=== PATIENT | female | born 1975 | race Caucasian/White ===

== ENCOUNTER 2016-10-31 16:34 | Emergency (ER) | payer MEDICAID, OTHER ==
[2016-10-31 17:01] VITALS: O2SAT 100
--- NOTE | 2016-10-31 19:19 | C.PDOC ---
History Of Present Illness Patient presents to the ER with a compliant of intermittent chest pain and back pain that worsens with inspiration. Patient reports the pain has been worsening over the last few days and notes it hurts to move. Denies fever or chills. Time Seen by Provider: 10/31/16 19:18 Chief Complaint (Nursing): Chest Pain History Per: Patient History/Exam Limitations: no limitations Onset/Duration Of Symptoms: Days, Intermittent Episodes Current Symptoms Are (Timing): Still Present Severity: Moderate Pain Scale Rating Of: 4 Associated Symptoms: denies: Other (Fever, Chills) Exacerbating Factors: Movement, Deep Breathing Alleviating Factors: None Recent travel outside of the [place]: No Past Medical History Reviewed: Historical Data, Nursing Documentation, Vital Signs Vital Signs: Last Vital Signs Temp 97.9 F 10/31/16 23:00 Pulse 72 10/31/16 23:00 Resp 20 10/31/16 23:00 BP 111/57 L 10/31/16 23:00 Pulse Ox 100 10/31/16 23:00 - Medical History PMH: Diabetes, HTN, Hypercholesterolemia Surgical History: - [facility] Procedures APPLICATION OF SPLINT (09/20/14) Family History: States: No Known Family Hx - Social History Hx Tobacco Use: No Hx Alcohol Use: No Hx Substance Use: No - Immunization History Hx Tetanus Toxoid Vaccination: Yes Hx Influenza Vaccination: Yes Hx Pneumococcal Vaccination: No Review Of Systems Constitutional: Negative for: Fever, Chills Cardiovascular: Positive for: Chest Pain Musculoskeletal: Positive for: Back Pain Physical Exam - Physical Exam Appears: Non-toxic Skin: Warm, Dry Oral Mucosa: Moist Chest: Symmetrical, Tenderness (Reproducible Anterior Wall. Lower Thoracic Area) Cardiovascular: Rhythm Regular, No Murmur Respiratory: No Rales, No Rhonchi, No Wheezing Gastrointestinal/Abdominal: Soft, No Tenderness Neurological/Psych: Oriented x3 ED Course And Treatment - Laboratory Results Result Diagrams: 10/31/16 19:50 10/31/16 19:50 ECG: Interpreted By Me, Viewed By Me ECG Rhythm: Sinus Rhythm (68), Nonspecific Changes O2 Sat by Pulse Oximetry: 100 Pulse Ox Interpretation: Normal - Radiology CXR Interpretation: Yes: Other (poss lll infiltrate). No: Fracture, Cardiomegaly, Pnemothorax Progress Note: EKG, blood work, CXR and urinalysis ordered. Nebulizer treatment , ecotrin, pepcid and morphine administered. Reevaluation Time: 23:05 Reassessment Condition: Improved Medical Decision Making Medical Decision Making: Upon provider reevaluation patient is feeling better, is medically stable, and requires no further treatment in the ED at this time. Patient will be discharged home with Rx for naprosyn . Counseling was provided and all questions were answered regarding diagnosis and need for follow up with dr riojas. There is agreement to discharge plan. Return if symptoms persist or worsen. Disposition Counseled Patient/Family Regarding: Studies Performed, Diagnosis, Need For Followup - Disposition Referrals: Lizz Riojas APN [Advanced Practice Nurse] - Disposition: HOME/ ROUTINE Disposition Time: 19:19 Condition: FAIR Additional Instructions: Please return if symptoms recur Prescriptions: Naproxen [Naprosyn] 1 tab PO BID PRN #25 tab PRN Reason: Pain Instructions: Costochondritis (ED) Print Language: PUERTO RICAN - Clinical Impression Clinical Impression: Costochondral chest pain - Scribe Statement The provider has reviewed the documentation as recorded by the Scribelvis Wang All medical record entries made by the Vinayibelvis were at my direction and personally dictated by me. I have reviewed the chart and agree that the record accurately reflects my personal performance of the history, physical exam, medical decision making, and the department course for this patient. I have also personally directed, reviewed, and agree with the discharge instructions and disposition.
[2016-10-31] MEDS ORDERED: Aspirin 325 mg EC Tablets PO STA (19:32)
[2016-10-31] MEDS: Albuterol-Ipratrop 3 mg / 0.5 (3 ml) UD IH SCH ×3 (19:44→20:25)
[2016-10-31 19:52] VITALS: RESP 20
[2016-10-31 19:55] LABS: BASO # 0.1 K/uL (0.0-0.2); BASO % 0.8 % (0.0-2.0); EOS # 0.2 K/uL (0.0-0.7); EOS % 2.2 % (0.0-4.0); HEMATOCRIT 42.4 % (34.0-47.0); LYMPH # 4.1 K/uL (1.0-4.3); LYMPH % 41.5 % (20.0-40.0); MEAN CELL VOLUME 92.9 fL (81.0-99.0); MEAN CORPUSCULAR HEMOGLOBIN 29.6 pg (27.0-31.0); MEAN CORPUSCULAR HGB CONC 31.9 g/dL (33.0-37.0); MEAN PLATELET VOLUME 8.8 fL (7.2-11.7); MONO # 0.7 K/uL (0.0-0.8); NRBC % 0.1 % (0.0-2.0); RED CELL DISTRIBUTION WIDTH 14.2 % (11.5-14.5)
[2016-10-31] MEDS ORDERED: Albuterol-Ipratrop 3 mg / 0.5 (3 ml) UD ONE (19:56)
[2016-10-31 20:04] LABS: CHLORIDE 109 mmol/L (98-107); INR 0.9
[2016-10-31 20:05] LABS: SODIUM 139 mmol/L (132-148)
[2016-10-31 20:07] LABS: ALB/GLOB RATIO 1.3 (1.0-2.1); AST/SGOT 31 U/L (14-36); BILIRUBIN,TOTAL 0.9 mg/dL (0.2-1.3); BLOOD UREA NITROGEN 16 mg/dL (7-17); CARBON DIOXIDE 16 mmol/L (22-30); GFR AFRICAN-AMERICAN > 60; TOTAL PROTEIN 7.9 g/dL (6.3-8.3)
[2016-10-31 20:08] LABS: ALKALINE PHOSPHATASE 91 U/L (38-126); ALT/SGPT 13 U/L (9-52); GLUCOSE,RANDOM 86 mg/dL (65-105)
[2016-10-31 20:27] LABS: URINE BACTERIA RARE (<OCC); URINE BILIRUBIN NEGATIVE (NEGATIVE); URINE BLOOD 3+ (NEGATIVE); URINE COLOR Colorless (YELLOW); URINE GLUCOSE (UA) 3+ mg/dL (Normal); URINE KETONE NEGATIVE (NEGATIVE); URINE LEUKOCYTE ESTERASE NEG Leu/uL (Negative); URINE PROTEIN NEGATIVE (NEGATIVE); URINE UROBILINOGEN NORMAL mg/dL (0.2-1.0); WBC URINE < 1 /hpf (0-5)
[2016-10-31 23:00] VITALS: BP 111/57; PULSE 72; TEMP 97.9
--- NOTE | 2016-11-01 08:43 | RAD ---
PROCEDURE: CHEST RADIOGRAPH, 1 VIEW HISTORY: chest pain COMPARISON: None available. FINDINGS: LUNGS: Clear. PLEURA: No pneumothorax or pleural fluid seen. CARDIOVASCULAR: Normal. OSSEOUS STRUCTURES: Degenerative changes in the spine and right shoulder. VISUALIZED UPPER ABDOMEN: Normal. OTHER FINDINGS: None. IMPRESSION: No active disease.
--- NOTE | 2016-11-03 00:29 | CARD ---
APPROVED REPORT EKG Measurement Heart [id number] <Conclusion> Normal sinus rhythm Normal ECG
== END 2016-10-31 23:40 | disposition home or self-care (01) ==
LOC: C.ER 16:34
DX: R07.1 Chest pain on breathing (principal)
CPT/HCPCS: 71010; 80053; 81001; 84484; 84703; 85025; 85610; 85730; 96374; 96375; 99285; J2270

== ENCOUNTER 2017-06-28 15:46 | Observation (INO) | payer MEDICAID, OTHER ==
[2017-06-28] MEDS ORDERED: Aspirin 325 mg EC Tablets PO STA (16:17)
--- NOTE | 2017-06-28 16:19 | C.PDOC ---
History Of Present Illness 42-year-old female, PMHx includes Diabetes, Hypertension, and Hypercholesterolemia, presents to the emergency department with complaints of one day duration of chest pain that started last night. Patient notes pain was initially intermittent, but when she woke up this morning, it became persistent and associated with shortness of breath, nausea and dizziness. Patient also notes tingling in her hands. Pain is non-radiating and worsens with deep inspiration. Denies any fevers, vomiting, abdominal pain, dizziness, recent travel, back pain, leg swelling, or any other associated symptoms. No other complaints at this time. Time Seen by Provider: 06/28/17 16:08 Chief Complaint (Nursing): Chest Pain History Per: Patient History/Exam Limitations: no limitations Onset/Duration Of Symptoms: Hrs Current Symptoms Are (Timing): Still Present Severity: Moderate Past Medical History Reviewed: Historical Data, Nursing Documentation, Vital Signs Vital Signs: Last Vital Signs Temp 98.0 F 06/28/17 17:32 Pulse 68 06/28/17 17:32 Resp 16 06/28/17 17:32 BP 115/65 06/28/17 17:32 Pulse Ox 100 06/28/17 18:01 - Medical History PMH: Diabetes, HTN, Hypercholesterolemia Surgical History: - [facility] Procedures APPLICATION OF SPLINT (09/20/14) Family History: States: No Known Family Hx - Social History Hx Tobacco Use: No Hx Alcohol Use: No Hx Substance Use: No - Immunization History Hx Tetanus Toxoid Vaccination: Yes Hx Influenza Vaccination: Yes Hx Pneumococcal Vaccination: No Review Of Systems Except As Marked, All Systems Reviewed And Found Negative. Constitutional: Negative for: Fever, Chills Cardiovascular: Positive for: Chest Pain. Negative for: Palpitations, Edema Respiratory: Positive for: Shortness of Breath Gastrointestinal: Positive for: Nausea. Negative for: Vomiting, Abdominal Pain Musculoskeletal: Negative for: Back Pain Skin: Negative for: Rash Neurological: Positive for: Dizziness. Negative for: Weakness, Numbness, Headache Physical Exam - Physical Exam Appears: Non-toxic, No Acute Distress, Other (appears anxious) Skin: Normal Color, Warm, Dry, No Diaphoretic, No Rash Head: Normacephalic Eye(s): bilateral: PERRL Nose: Normal Oral Mucosa: Moist Lips: Normal Appearing Neck: Normal ROM Chest: Symmetrical, Tenderness (chest wall w/ palpation) Cardiovascular: Rhythm Regular, No Edema, No Murmur Respiratory: Normal Breath Sounds, No Accessory Muscle Use Gastrointestinal/Abdominal: Soft, No Tenderness Extremity: Normal ROM Neurological/Psych: Oriented x3, Normal Speech ED Course And Treatment - Laboratory Results Result Diagrams: 06/28/17 16:25 06/28/17 16:25 ECG: Interpreted By Me, Viewed By Me ECG Rhythm: Sinus Rhythm ECG Interpretation: No Acute Changes Rate From EC O2 Sat by Pulse Oximetry: 100 (RA) Pulse Ox Interpretation: Normal Medical Decision Making Medical Decision Making: Plan: * EKG * Labs * Chest X-Ray * Aspirin * Reassess and Disposition Reassess Patient will be admitted to Dr Quach service. Patient is agreeable with plan. All questions were answered. Disposition Discussed With .: Marquita Murillo Doctor Will See Patient In The: Hospital Counseled Patient/Family Regarding: Studies Performed, Diagnosis - Disposition Disposition: HOSPITALIZED Disposition Time: 18:01 Condition: FAIR Forms: [facility] (Gh[place]ian) - POA Core Measure Indicators: Chest Pain - Clinical Impression Clinical Impression: Chest pain - Scribe Statement The provider has reviewed the documentation as recorded by the Scribe (Boaz Leach) All medical record entries made by the Scribe were at my direction and personally dictated by me. I have reviewed the chart and agree that the record accurately reflects my personal performance of the history, physical exam, medical decision making, and the department course for this patient. I have also personally directed, reviewed, and agree with the discharge instructions and disposition.
[2017-06-28 16:38] LABS: BASO # 0.1 K/uL (0.0-0.2); EOS # 0.2 K/uL (0.0-0.7); EOS % 2.1 % (0.0-4.0); HEMOGLOBIN 14.6 g/dL (11.0-16.0); LYMPH # 4.3 K/uL (1.0-4.3); LYMPH % 38.5 % (20.0-40.0); MEAN CORPUSCULAR HEMOGLOBIN 30.9 pg (27.0-31.0); MEAN CORPUSCULAR HGB CONC 34.1 g/dL (33.0-37.0); MEAN PLATELET VOLUME 8.7 fL (7.2-11.7); MONO # 0.8 K/uL (0.0-0.8); MONO % 7.1 % (0.0-10.0); NEUT # 5.7 K/uL (1.8-7.0); NEUT % 51.3 % (50.0-75.0); RBC 4.72 Mil/uL (3.80-5.20); RED CELL DISTRIBUTION WIDTH 12.7 % (11.5-14.5); WHITE BLOOD COUNT 11.1 K/uL (4.8-10.8)
[2017-06-28 16:39] LABS: MEAN CELL VOLUME 90.6 fL (81.0-99.0)
[2017-06-28 16:44] LABS: ALB/GLOB RATIO 1.3 (1.0-2.1); ALBUMIN 4.6 g/dL (3.5-5.0); ALT/SGPT 26 U/L (9-52); AST/SGOT 20 U/L (14-36); BLOOD UREA NITROGEN 11 mg/dL (7-17); CALCIUM 10.6 mg/dl (8.6-10.4); GFR AFRICAN-AMERICAN > 60; GFR NON-AFRICAN AMERICAN > 60
--- NOTE | 2017-06-28 16:50 | RAD ---
PROCEDURE: CHEST RADIOGRAPH, 1 VIEW HISTORY: chest pain COMPARISON: None available. FINDINGS: LUNGS: Poor inspiration with low lung volumes, crowded bronchovascular markings and mild bibasilar atelectasis. PLEURA: No pneumothorax or pleural fluid seen. CARDIOVASCULAR: Normal. OSSEOUS STRUCTURES: No significant abnormalities. VISUALIZED UPPER ABDOMEN: Normal. OTHER FINDINGS: None. IMPRESSION: Poor inspiration with low lung volumes, crowded bronchovascular markings and mild bibasilar atelectasis.
[2017-06-28 16:56] LABS: B-TYPE NATRIURETIC PEPTIDE 164 pg/mL (0-450)
[2017-06-28] MEDS ORDERED: Potassium Chloride 20 mEq ER Tab PO STA (17:59)
[2017-06-28] MEDS ORDERED: Potassium Chloride 20 mEq/15 ml LIQ UD PO STA (18:34)
[2017-06-28] MEDS ORDERED: Potassium Chloride 20 mEq/15 ml LIQ UD ONE (18:35)
--- NOTE | 2017-06-28 18:45 | CP.PCM.HP ---
History of Present Illness - History of Present Illness History of Present Illness: admited from ed for chest pain l side chest for 10 minits with sob diabetic htn Present on Admission - Present on Admission Any Indicators Present on Admission: Yes Review of Systems - Review of Systems Systems not reviewed;Unavailable: Acuity of Condition - Constitutional Constitutional: Fatigue - EENT Eyes: As Per HPI Ears: As Per HPI Nose/Mouth/Throat: As Per HPI - Breasts Breasts: As Per HPI - Cardiovascular Cardiovascular: Chest Pain at Rest, Dyspnea - Respiratory Respiratory: Pain on Inspiration - Gastrointestinal Gastrointestinal: As Per HPI - Genitourinary Genitourinary: As Per HPI - Reproductive: Female Reproductive:Female: As Per HPI - Menstruation Menstruation: As Per HPI - Musculoskeletal Musculoskeletal: As Per HPI - Integumentary Integumentary: As Per HPI - Neurological Neurological: As Per HPI - Psychiatric Psychiatric: As Per HPI - Endocrine Endocrine: As Per HPI - Hematologic/Lymphatic Hematologic: As Per HPI Past Patient History - Infectious Disease Hx of Infectious Diseases: None - Past Social History Smoking Status: Never Smoked - CARDIAC Hx Hypercholesterolemia: Yes Hx Hypertension: Yes - HEENT Hx HEENT Problems: Yes Other/Comment: CORRECTIVE LENS SX - ENDOCRINE/METABOLIC Hx Endocrine Disorders: Yes Hx Diabetes Mellitus Type 2: Yes - PSYCHIATRIC Hx Substance Use: No - SURGICAL HISTORY Hx Surgeries: Yes Hx Section: Yes (3 c-sections) Hx Musculoskeletal Surgery: Yes (right shoulder) - ANESTHESIA Hx Anesthesia: Yes Hx Anesthesia Reactions: No Meds Allergies/Adverse Reactions: Allergies Allergy/AdvReac Type Severity Reaction Status Date / Time pineapple Allergy Verified 10/31/16 16:56 Physical Exam - Constitutional Appears: Non-toxic - Head Exam Head Exam: ATRAUMATIC - Eye Exam Eye Exam: Normal appearance Pupil Exam: NORMAL ACCOMODATION - ENT Exam ENT Exam: Mucous Membranes Moist - Neck Exam Neck exam: Positive for: Normal Inspection - Respiratory Exam Respiratory Exam: Clear to Auscultation Bilateral - Cardiovascular Exam Cardiovascular Exam: REGULAR RHYTHM - GI/Abdominal Exam GI & Abdominal Exam: Normal Bowel Sounds - Rectal Exam Rectal Exam: NORMAL INSPECTION - Exam Exam: NORMAL INSPECTION - Extremities Exam Extremities exam: Positive for: normal inspection - Back Exam Back exam: NORMAL INSPECTION - Neurological Exam Neurological exam: Normal Gait, Oriented x3 - Psychiatric Exam Psychiatric exam: Anxious - Skin Skin Exam: Normal Color Results - Vital Signs Recent Vital Signs: Last Vital Signs Temp 98.0 F 06/28/17 17:32 Pulse 70 06/28/17 18:38 Resp 16 06/28/17 18:38 BP 133/62 06/28/17 18:38 Pulse Ox 100 06/28/17 18:38 - Labs Result Diagrams: 06/28/17 16:25 06/28/17 16:25 Labs: Laboratory Results - last 24 hr 06/28/17 06/28/17 16:25 16:25 WBC 11.1 H RBC 4.72 Hgb 14.6 Hct 42.7 MCV 90.6 D MCH 30.9 MCHC 34.1 RDW 12.7 Plt Count 339 MPV 8.7 Neut % (Auto) 51.3 Lymph % (Auto) 38.5 [place] % (Auto) 7.1 Eos % (Auto) 2.1 Baso % (Auto) 1.0 Neut # (Auto) 5.7 Lymph # (Auto) 4.3 [place] # (Auto) 0.8 Eos # (Auto) 0.2 Baso # (Auto) 0.1 Sodium 137 Potassium 3.1 L Chloride 103 Carbon Dioxide 16 L Anion Gap 21 H BUN 11 Creatinine 0.6 L Est GFR ( Amer) > 60 Est GFR (Non-Af Amer) > 60 Random Glucose 97 Calcium 10.6 H Total Bilirubin 0.5 AST 20 ALT 26 Alkaline Phosphatase 90 Troponin I < 0.0120 NT-Pro-B Natriuret Pep 164 Total Protein 8.1 Albumin 4.6 Globulin 3.5 Albumin/Globulin Ratio 1.3 Assessment & Plan - Assessment and Plan (Free Text) Assessment: ac l side chest pain dm htn sob hypokaleamia Plan: as per orders - Date & Time Date: 06/28/17 Time: 18:48
[2017-06-28] MEDS ORDERED: Morphine 4 MG/ML VIAL IVP PRN (19:52)
[2017-06-28] MEDS ORDERED: Morphine 4 MG/ML VIAL ONE (19:58)
[2017-06-28 20:44] LABS: HCG,QUALITATIVE URINE NEGATIVE (NEGATIVE)
[2017-06-28 20:48] LABS: SQUAMOUS EPITHIAL 2 /hpf (0-5); URINE BACTERIA RARE (<OCC); URINE BILIRUBIN NEGATIVE (NEGATIVE); URINE BLOOD NEGATIVE (NEGATIVE); URINE CLARITY Clear (Clear); URINE COLOR Colorless (YELLOW); URINE GLUCOSE (UA) 3+ mg/dL (Normal); URINE LEUKOCYTE ESTERASE NEG Leu/uL (Negative); URINE NITRATE NEGATIVE (NEGATIVE); URINE PROTEIN NEGATIVE (NEGATIVE); URINE UROBILINOGEN NORMAL mg/dL (0.2-1.0)
[2017-06-29 00:30] LABS: BLOOD UREA NITROGEN 13 mg/dL (7-17); CALCIUM 8.9 mg/dl (8.6-10.4); GFR AFRICAN-AMERICAN > 60; GFR NON-AFRICAN AMERICAN > 60
[2017-06-29 00:35] LABS: CK-MB 0.31 ng/mL (0.0-3.38)
[2017-06-29 08:15] VITALS: RESP 20; O2SAT 100
[2017-06-29] MEDS: Enoxaparin 40 mg Syringe SC SCH (11:00)
[2017-06-29] MEDS: (Novolog) Insulin Aspart, Recombinant 100 u/ml 10 ml vial SC SCH ×3 (12:28→22:21)
--- NOTE | 2017-06-29 19:07 | CP.PCM.PN ---
Subjective - Date & Time of Evaluation Date of Evaluation: 06/29/17 Time of Evaluation: 19:04 - Subjective Subjective: feels beter less chest pain has sob Objective - Vital Signs/Intake and Output Vital Signs (last 24 hours): Temp Pulse Resp BP Pulse Ox 98.3 F 65 20 105/64 100 06/29/17 16:00 06/29/17 16:00 06/29/17 16:00 06/29/17 16:00 06/29/17 16:00 Intake and Output: 06/29/17 06/30/17 18:59 06:59 Intake Total 300 Balance 300 - Medications Medications: Current Medications Albuterol/Ipratropium (Duoneb 3 Mg/0.5 Mg (3 Ml) Ud) 3 ml INH RQID [facility] Enoxaparin Sodium (Lovenox) 40 mg SC DAILY [facility] Last Admin: 06/29/17 11:00 Dose: 40 mg Insulin Aspart (Novolog) 0 unit SC ACHS [facility] PRN Reason: Protocol Last Admin: 06/29/17 17:46 Dose: Not Given Metformin HCl (Glucophage Xr) 500 mg PO DAILY [facility] Last Admin: 06/29/17 09:50 Dose: 500 mg Morphine Sulfate (Morphine) 1 mg IVP Q6 PRN PRN Reason: Pain, moderate (4-7) Last Admin: 06/29/17 01:20 Dose: 1 mg - Labs Labs: 06/28/17 16:25 06/28/17 23:59 - Constitutional Appears: Non-toxic - Head Exam Head Exam: NORMAL INSPECTION - Eye Exam Eye Exam: Normal appearance Pupil Exam: NORMAL ACCOMODATION - Neck Exam Neck Exam: Full ROM - Respiratory Exam Respiratory Exam: NORMAL BREATHING PATTERN - Cardiovascular Exam Cardiovascular Exam: REGULAR RHYTHM - GI/Abdominal Exam GI & Abdominal Exam: Normal Bowel Sounds - Rectal Exam Rectal Exam: NORMAL INSPECTION - Exam Exam: NORMAL INSPECTION External exam: NORMAL EXTERNAL EXAM - Extremities Exam Extremities Exam: Normal Inspection - Back Exam Back Exam: NORMAL INSPECTION - Psychiatric Exam Psychiatric exam: Normal Mood - Skin Skin Exam: Dry Assessment and Plan - Assessment and Plan (Free Text) Assessment: chest pain costocondritis anexiety asthma improving Plan: dm plan cont med
[2017-06-29] MEDS ORDERED: Albuterol-Ipratrop 3 mg / 0.5 (3 ml) UD INH SCH (20:00)
[2017-06-29] MEDS: Albuterol-Ipratrop 3 mg / 0.5 (3 ml) UD INH SCH (21:43)
[2017-06-30] MEDS: Albuterol-Ipratrop 3 mg / 0.5 (3 ml) UD INH SCH ×2 (07:12→11:14)
[2017-06-30] MEDS: (Novolog) Insulin Aspart, Recombinant 100 u/ml 10 ml vial SC SCH ×2 (07:59→12:01)
[2017-06-30 08:54] VITALS: BP 115/75; TEMP 97.5
[2017-06-30] MEDS: Enoxaparin 40 mg Syringe SC SCH (09:06)
--- NOTE | 2017-06-30 12:16 | CP.PCM.PN ---
Subjective - Date & Time of Evaluation Date of Evaluation: 06/30/17 Time of Evaluation: 11:35 Objective - Vital Signs/Intake and Output Vital Signs (last 24 hours): Temp Pulse Resp BP Pulse Ox 97.5 F L 60 20 115/75 100 06/30/17 08:53 06/30/17 08:53 06/30/17 08:53 06/30/17 08:53 06/30/17 08:53 Intake and Output: 06/30/17 06/30/17 06:59 18:59 Intake Total 240 Balance 240 - Medications Medications: Current Medications Albuterol/Ipratropium (Duoneb 3 Mg/0.5 Mg (3 Ml) Ud) 3 ml INH RQID [facility] Last Admin: 06/30/17 11:14 Dose: 3 ml Enoxaparin Sodium (Lovenox) 40 mg SC DAILY [facility] Last Admin: 06/30/17 09:06 Dose: 40 mg Insulin Aspart (Novolog) 0 unit SC ACHS [facility] PRN Reason: Protocol Last Admin: 06/30/17 12:01 Dose: Not Given Metformin HCl (Glucophage Xr) 500 mg PO DAILY [facility] Last Admin: 06/30/17 09:06 Dose: 500 mg Morphine Sulfate (Morphine) 1 mg IVP Q6 PRN PRN Reason: Pain, moderate (4-7) Last Admin: 06/29/17 01:20 Dose: 1 mg - Labs Labs: 06/28/17 16:25 06/28/17 23:59
--- NOTE | 2017-06-30 12:33 | CP.PCM.PN ---
Subjective - Date & Time of Evaluation Date of Evaluation: 06/30/17 Time of Evaluation: 12:30 - Subjective Subjective: pt feels good dressed ready to go home no chest pain no abnormal ekg or c enzyms Objective - Vital Signs/Intake and Output Vital Signs (last 24 hours): Temp Pulse Resp BP Pulse Ox 97.5 F L 60 20 115/75 100 06/30/17 08:53 06/30/17 08:53 06/30/17 08:53 06/30/17 08:53 06/30/17 08:53 Intake and Output: 06/30/17 06/30/17 06:59 18:59 Intake Total 240 Balance 240 - Medications Medications: Current Medications Albuterol/Ipratropium (Duoneb 3 Mg/0.5 Mg (3 Ml) Ud) 3 ml INH RQID [facility] Last Admin: 06/30/17 11:14 Dose: 3 ml Enoxaparin Sodium (Lovenox) 40 mg SC DAILY [facility] Last Admin: 06/30/17 09:06 Dose: 40 mg Insulin Aspart (Novolog) 0 unit SC ACHS [facility] PRN Reason: Protocol Last Admin: 06/30/17 12:01 Dose: Not Given Metformin HCl (Glucophage Xr) 500 mg PO DAILY [facility] Last Admin: 06/30/17 09:06 Dose: 500 mg Morphine Sulfate (Morphine) 1 mg IVP Q6 PRN PRN Reason: Pain, moderate (4-7) Last Admin: 06/29/17 01:20 Dose: 1 mg - Labs Labs: 06/28/17 16:25 06/28/17 23:59 - Constitutional Appears: Non-toxic - Head Exam Head Exam: NORMAL INSPECTION - Eye Exam Eye Exam: Normal appearance Pupil Exam: NORMAL ACCOMODATION - ENT Exam ENT Exam: Normal Exam - Neck Exam Neck Exam: Full ROM - Respiratory Exam Respiratory Exam: Clear to Ausculation Bilateral - Cardiovascular Exam Cardiovascular Exam: REGULAR RHYTHM - GI/Abdominal Exam GI & Abdominal Exam: Normal Bowel Sounds - Rectal Exam Rectal Exam: NORMAL INSPECTION - Extremities Exam Extremities Exam: Full ROM - Back Exam Back Exam: NORMAL INSPECTION - Neurological Exam Neurological Exam: Awake, Oriented x3 - Psychiatric Exam Psychiatric exam: Normal Affect - Skin Skin Exam: Normal Color Assessment and Plan - Assessment and Plan (Free Text) Assessment: chest pain nonspescific improved dm controled Plan: will d/c home today
[2017-06-30 13:33] VITALS: PULSE 91
--- NOTE | 2017-06-30 23:23 | CARD ---
APPROVED REPORT EKG Measurement Heart [id number] <Conclusion> Normal sinus rhythm Normal ECG
== END 2017-06-30 13:28 | disposition home or self-care (01) ==
LOC: C.ER 15:46 → C.9E 18:19 → C.6T 23:54
PROVIDERS: ADMIT Internal Medicine; ATTEND Internal Medicine
DX: R07.9 Chest pain, unspecified (principal); I10 Essential (primary) hypertension; E78.00 Pure hypercholesterolemia, unspecified; E11.9 Type 2 diabetes mellitus without complications; Z91.018 Allergy to other foods; E87.6 Hypokalemia; F41.9 Anxiety disorder, unspecified; J45.909 Unspecified asthma, uncomplicated; M94.0 Chondrocostal junction syndrome [Tietze]; Z79.84 Long term (current) use of oral hypoglycemic drugs
CPT/HCPCS: 71045; 80048; 80053; 81001; 82948; 83880; 84484; 84703; 85025; 93005; 94150; 94640; 96372; 96374; 96376; 99285; G0378; J1650; J2270